=== PATIENT | male | born 1990 | race African-American/Black ===

== ENCOUNTER 2017-01-22 13:37 | Emergency (ER) | payer MEDICAID ==
[~2017-01-22] VITALS: Ht 180.3 cm; Wt 71.0 kg
[2017-01-22 14:47] VITALS: BP 107/56
== END 2017-01-22 19:57 | disposition left against medical advice (07) ==
LOC: ER 13:37
DX: M54.9 Dorsalgia, unspecified (principal); Z53.21 Procedure and treatment not carried out due to patient leaving prior to being seen by health care provider